=== PATIENT | female | born 1990 | race Caucasian/White ===

== ENCOUNTER 2024-08-11 17:59 | Emergency (ER) | payer MEDICAID, OTHER ==
[~2024-08-11] VITALS: Ht 160 cm; Wt 66.0 kg
[2024-08-11 18:38] VITALS: BP 114/68; PULSE 73; RESP 14; TEMP 98.4; O2SAT 99
== END 2024-08-11 23:18 | disposition left against medical advice (07) ==
LOC: ER 18:01
DX: R10.13 Epigastric pain (principal); R11.2 Nausea with vomiting, unspecified; R42 Dizziness and giddiness; Z91.040 Latex allergy status; Z88.8 Allergy status to other drugs, medicaments and biological substances; Z53.21 Procedure and treatment not carried out due to patient leaving prior to being seen by health care provider